=== PATIENT | male | born 1995 | race African-American/Black ===

== ENCOUNTER 2016-11-10 13:08 | Emergency (ER) | payer MEDICAID, OTHER ==
[~2016-11-10] VITALS: Ht 177.8 cm; Wt 107.0 kg
[2016-11-10 13:10] VITALS: BP 134/70; PULSE 88; RESP 16; TEMP 98.7; O2SAT 97
--- NOTE | 2016-11-10 13:50 | PD ---
HPI Chief Complaint: Musculoskeletal Complaint Time Seen by Provider: 13:46 Travel History International Travel<30 days: No Contact w/Intl Traveler<30days: No Traveled to known affect area: No History of Present Illness HPI 21-year-old male presents to the emergency department for evaluation of left knee injury that occurred yesterday while playing football. He states he hyperextended his left knee resulting in pain. He denies any other injury. No head injury or LOC. No neck or pain back. No chest pain or abdominal pain. No hip or pelvic pain. He states he has been unable to walk due to the pain in his left knee. Patient has no chronic medical problems and takes no prescribed medications. He denies any other complaints. [facility] Social History Alcohol Use: No Tobacco Use: No Substance Use: No Allergies-Medications (Allergen,Severity, Reaction): Coded Allergies: No Known Allergies (Unverified , 11/10/16) Reported Meds & Prescriptions Reported Meds & Active Scripts Active No Active Prescriptions or Reported Medications Review of Systems Except as stated in HPI: all other systems reviewed are Neg Physical Exam Narrative GENERAL: Well-developed well-nourished male patient, ambulatory. Afebrile. SKIN: Warm and dry. HEAD: Normocephalic. Atraumatic. EYES: No scleral icterus. No injection or drainage. NECK: Supple, trachea midline. No JVD or lymphadenopathy. CARDIOVASCULAR: Regular rate and rhythm without murmurs, gallops, or rubs. Left pedal pulse 2+. Capillary refill less than 2 seconds to the digits of the left foot. RESPIRATORY: Breath sounds equal bilaterally. No accessory muscle use. Lungs sounds are clear to auscultation. GASTROINTESTINAL: Abdomen soft, non-tender, nondistended. MUSCULOSKELETAL: No cyanosis, or edema. Patient has tenderness over left anterior and left lateral knee. He has limited ROM due to pain. He has full sensation to the distal left lower extremity. BACK: Nontender without obvious deformity. No CVA tenderness. Data Data Last Documented VS Vital Signs Date Time Temp Pulse Resp B/P Pulse Ox O2 Delivery O2 Flow Rate FiO2 11/10/16 13:10 98.7 88 16 134/70 97 Room Air Orders Knee, Complete (4vws) (11/10/16 ) Ketorolac Inj (Toradol Inj) (11/10/16 14:00) Splint Or Brace Apply/Monitor (11/10/16 14:26) Crutches (11/10/16 14:26) MDM Medical Decision Making Medical Screen Exam Complete: Yes Emergency Medical Condition: Yes Medical Record Reviewed: Yes Interpretation(s) x-ray left knee - CONCLUSION: 1. Large suprapatellar knee joint effusion. 2. No acute fracture, dislocation or significant arthritic changes. Differential Diagnosis Fracture versus dislocation versus sprain Narrative Course 21-year-old male presents to the emergency department for evaluation of left knee injury that occurred yesterday while playing football. X-ray of the left knee is ordered and pending. X-ray of the left knee shows a large suprapatellar knee joint effusion, no acute fracture, dislocation or significant arthritic changes. Patient is placed in a hinged knee brace and given crutches. He is instructed ice and elevate. He'll be discharged with a prescription for ibuprofen for pain. He is instructed to follow-up with orthopedist if pain continues or worsens. Patient is agreeable to this plan. Diagnosis Primary Impression: Left knee sprain Qualified Code: S83.92XA - Sprain of left knee, unspecified ligament, initial encounter Referrals: Orthopedist call for appointment Patient Instructions: General Instructions, Knee Sprain (ED) Departure Forms: Tests/Procedures, Work Release Enter return to work date: Nov 13, 2016 Additional Instructions: Wear knee brace and use crutches. Elevate. Ice for 20 minutes 4-5 times daily. Take ibuprofen as instructed as needed with food for pain. Follow-up with an orthopedist if pain continues or does not improve. Return to the emergency department for any acute worsening of symptoms. Med/Other Pt SpecificInfo: Prescription(s) given Scripts Ibuprofen 800 Mg Pki666 Mg PO TID PRN (PAIN SCALE 1 TO 10) #21 TAB Ref 0 Prov:Doreen Pierce 11/10/16 Disposition: 01 DISCHARGE HOME Condition: Stable Doreen Pierce Nov 10, 2016 13:50
[2016-11-10] MEDS ORDERED: KETOROLAC TROMETHAMINE 60 MG/2 ML (IM) VIAL IM ONE (14:00)
--- NOTE | 2016-11-10 14:22 | RADRPT ---
EXAM DATE/TIME: 11/10/2016 14:15 [facility] COMPARISON: No previous studies available for comparison. INDICATIONS : Left knee pain after hyperextending playing football. MEDICAL HISTORY : None. SURGICAL HISTORY : None. ENCOUNTER: Initial ACUITY: 1 day PAIN SCORE: 10/10 LOCATION: Left lateral knee. FINDINGS: There is a large suprapatellar knee joint effusion. There is no acute fracture or dislocation of the left knee. No significant arthritic changes are noted. CONCLUSION: 1. Large suprapatellar knee joint effusion. 2. No acute fracture, dislocation or significant arthritic changes. Mike Finley MD on November 10, 2016 at 14:14 Board Certified Radiologist. This report was verified electronically.
[2016-11-10] MEDS ORDERED: IBUP800T23 PO (14:28)
== END 2016-11-10 14:47 | disposition home or self-care (01) ==
LOC: NEPB 13:08
DX: S83.92XA Sprain of unspecified site of left knee, initial encounter (principal); X50.1XXA Overexertion from prolonged static or awkward postures, initial encounter; Y93.61 Activity, american tackle football; Y92.9 Unspecified place or not applicable; Y99.9 Unspecified external cause status
CPT/HCPCS: 73564; 96372; 99283; E0113; J1885; L1810